=== PATIENT | male | born 1960 | race Caucasian/White ===

== ENCOUNTER 2020-05-10 06:17 | Inpatient (IN) | payer MEDICAID ==
[2020-05-03 11:45] LABS: CLARITY,URINE CLEAR (Clear); COLOR,URINE YELLOW (Yellow); GLUCOSE, URINE NEGATIVE (Neg); KETONES,URINE NEGATIVE (Neg); LEUKOCYTE ESTERASE ,URINE NEGATIVE (Neg); NITRITES, URINE NEGATIVE (Neg); OCCULT BLOOD,URINE NEGATIVE (Neg); PROTEIN,URINE NEGATIVE (Neg); UROBILINOGEN,URINE 0.2 E.U/dL (0.2-1.0)
[2020-05-03 11:48] LABS: BASOPHILS % (AUTO) 0.6 % (0-1); EOSINOPHILS # (AUTO) 0.3 X10'3 (0-0.9); EOSINOPHILS % (AUTO) 3.9 % (0-6); LYMPHOCYTES # (AUTO) 2.5 X10'3 (1.1-4.8); LYMPHOCYTES % (AUTO) 30.4 % (21-51); MEAN CORPUSCULAR HEMOGLOBIN 31.6 PG (27.0-31.0); MEAN CORPUSCULAR VOLUME 92.8 FL (78-98); MEAN PLATELET VOLUME 7.2 FL (7.4-10.4); MONOCYTES # (AUTO) 0.7 X10'3 (0-0.9); NEUTROPHILS # (AUTO) 4.6 X10'3 (1.8-7.7); NEUTROPHILS % (AUTO) 57.1 % (42-75); PRE OP HEMATOCRIT 41.7 % (42.0-52.0); PRE OP HEMOGLOBIN 14.2 g/dL (14.0-17.9); PRE OP PLATELET COUNT 268 X10'3 (140-440); RED CELL DISTRIBUTION WIDTH 13.2 % (11.5-14.5)
[2020-05-03 11:49] LABS: UA COLLECTION TYPE CLN CATCH MIDSTREAM
[2020-05-03 11:58] LABS: PRE OP INR 0.9 INR; PRE OP PROTIME 9.8 SECONDS (9.0-12.0)
[2020-05-03 12:01] LABS: ALBUMIN 3.7 G/DL (3.4-5.0); ALBUMIN/GLOBULIN RATIO 0.9 (1.1-1.5); ALKALINE PHOSPHATASE 118 IU/L (46-116); BLOOD UREA NITROGEN 16 MG/DL (7-18); CALCIUM 8.5 MG/DL (8.5-10.1); CHLORIDE 107 MMOL/L (99-107); CREATININE 0.94 MG/DL (0.60-1.10); PRE OP ALT 32 U/L (30-65); PRE OP ANION GAP 8 (8-16); PRE OP AST 21 U/L (10-37); PRE OP BILIRUB, TOTAL 0.3 MG/DL (0.0-1.0); PRE OP GLUCOSE 94 MG/DL (70-104); PRE OP POTASSIUM 4.5 MMOL/L (3.4-5.1); PRE OP SODIUM 140 MMOL/L (135-145); TOTAL CARBON DIOXIDE 25.3 MMOL/L (24-32); TOTAL PROTEIN 7.6 G/DL (6.4-8.2); eGFR 82 ML/MIN
[~2020-05-10] VITALS: Ht 177.8 cm; Wt 123.7 kg
[2020-05-10] VITALS (22 sets, daily range): BP systolic 109–137; BP diastolic 65–83
[~2020-05-10 06:17] MED LIST: APIX5TAB3 PO; ceFAZolin 2gm in dextrose, iso 50 ML IV ONE; famotidine 20mg tablet PO ONE; ringers solution, lacted 1,000 ML IV SCH; vancomycin 1,500 MG in NS 300ml IV soln IV ONE
[2020-05-10] MEDS ORDERED: BUPIVAcaine/PF 2.5 mg/ml (0.25%) 30ml vial ONE (10:02)
[2020-05-10] MEDS ORDERED: bacitracin 15gm ointment TP ONE (10:02)
[2020-05-10] MEDS ORDERED: sevoflurane 250ml liquid IH ONE (10:22)
[2020-05-10] MEDS ORDERED: ROPIVAcaine 0.2%/PF PUMP/bolus 550 ML ADDCANAL SCH (10:27)
[2020-05-10] MEDS ORDERED: ringers solution, lacted 1,000 ML IV SCH (10:27)
[2020-05-10] MEDS ORDERED: meperidine/PF 25mg/ml syringe IV PRN ×3 (10:30)
[2020-05-10] MEDS ORDERED: acetaminophen 1,000mg/100ml IV 100 ML IV PRN (10:30)
[2020-05-10] MEDS ORDERED: morphine 4 MG/ML inj SYRINge IV PRN (10:30)
[2020-05-10] MEDS ORDERED: ondansetron/PF 4mg/2ml inj IV PRN (10:30)
[2020-05-10] MEDS ORDERED: ROPIVAcaine 0.2% (10 MG/5 ML) BOLUS INJECTION ADDCANAL PRN (10:30)
[2020-05-10] MEDS ORDERED: morphine 2 MG/ML inj. syringe IV PRN (10:30)
[2020-05-10] MEDS ORDERED: proCHLORperazine 10 MG/2 ml inj IV PRN (10:30)
[2020-05-10] MEDS ORDERED: fentaNYL/PF 50MCG/1 ML 2ML syringe ONE (11:03)
[2020-05-10] MEDS ORDERED: LIDOcaine 2% (20mg/ml) 5ml vial ONE (11:04)
[2020-05-10] MEDS ORDERED: propofol inj 20 ML IV ONE (11:04)
[2020-05-10] MEDS ORDERED: midazolam 2 mg/2 ml injection ONE (11:04)
[2020-05-10] MEDS ORDERED: ROPIVAcaine 0.5% (5mg/ml) 30ml vial ONE ×2 (11:04)
[2020-05-10] MEDS ORDERED: dexamethasone sod phosphate 4mg/ml inj. ONE (11:44)
[2020-05-10] MEDS ORDERED: ondansetron/PF 4mg/2ml inj ONE (11:44)
[2020-05-10] MEDS ORDERED: morphine 10mg/ml inj. ONE (12:59)
[2020-05-10] MEDS ORDERED: diphenhydrAMINE 25mg capsule PO PRN (14:10)
[2020-05-10] MEDS ORDERED: HYDROcodone/acetaminophen 10/325mg tab PO PRN ×2 (14:10)
--- NOTE | 2020-05-10 14:38 | NUR ---
Patient in room PAS IN 900. I have received report from Zak and had the opportunity to ask questions and assume patient care.
--- NOTE | 2020-05-10 14:46 | NUR ---
Report called to receiving nurse. Transferred via ORTHO BED WITH ONE BAG OF Belongings.UPPER DENTURE IN MOUTH. Special Issues communicated to receiving nurse NENA. SET PATIENT UP WITH VS AND BED IS IN LOW POSITION WITH 2 RAILS UP. SCDS ON RIGHT LE, FOOT OF BED GATCHED, DENIES PAIN AT THIS TIME. RN AWARE PATIENT HAS ARRIVED. VSS. ALL LINES SET UP. Addendum: 05/10/20 at 1507 by Zak Kilpatrick RN, RN Amended: Links added.
[2020-05-10] MEDS: ceFAZolin 2gm in dextrose, iso 50 ML IV SCH ×2 (15:40→23:52)
--- NOTE | 2020-05-10 18:30 | NUR ---
Problems reprioritized. Patient report given, questions answered & plan of care reviewed with Rachel.
--- NOTE | 2020-05-10 18:42 | NUR ---
Patient in room ORTHO 4013. I have received report from Reanna CATES and had the opportunity to ask questions and assume patient care.
[2020-05-10] MEDS: potassium cl 20mEq in 1/2 NS 1,000 ML IV SCH (19:15)
[2020-05-10] MEDS: docusate sod 100mg capsule PO SCH (19:31)
[2020-05-10] MEDS: apixaban 5mg tablet PO SCH (19:31)
[2020-05-11 02:35] VITALS: BP 104/62
[2020-05-11] MEDS: potassium cl 20mEq in 1/2 NS 1,000 ML IV SCH (03:15)
[2020-05-11 06:00] VITALS: BP 106/67
--- NOTE | 2020-05-11 06:34 | NUR ---
Problems reprioritized. Patient report given, questions answered & plan of care reviewed with Jess CATES.
--- NOTE | 2020-05-11 06:57 | NUR ---
Patient in room ORTHO 4013. I have received report from Rachel CATES and had the opportunity to ask questions and assume patient care.
[2020-05-11] MEDS: docusate sod 100mg capsule PO SCH (08:20)
[2020-05-11] MEDS: apixaban 5mg tablet PO SCH (08:20)
[2020-05-11 10:00] VITALS: BP 109/67
--- NOTE | 2020-05-11 14:34 | NUR ---
Pt DC to home. Pt is A&O X4, and in no apparent distress. Pt ahs a O Q nerve numbing bulb on left tightPt states he has no pain. Pt verbalizes understanding of all DC orders and is able to teach back process of how to access his surgical incision/cast. Pt able to asses for perfusion and pulses, S & S of compartment syndrome. Pt will continue with [facility] and states he will follow up with Dr Barnes and PCP. Pt states he has a scooter, crutches and walker if needed. will be there to assist him. Pt dressed, belongings were packed and carried out to with him. Pt wheeled to the front where picked him up.
== END 2020-05-11 13:56 | disposition home or self-care (01) | DRG 313 ==
LOC: PAS IN 06:17 → UNDOADMIN 06:17 → EDSTATUS 07:30 → PAS IN 14:08 → ORTHO 4S 14:45 → PAS IN 14:45
PROVIDERS: ADMIT Podiatrist Foot & Ankle Surgery; ATTEND Podiatrist Foot & Ankle Surgery
PROC: 3E0T3BZ Introduction of Anesthetic Agent into Peripheral Nerves and Plexi, Percutaneous Approach (ICD-10-PCS; 2020-05-10)
PROC: 0SRG0J9 Replacement of Left Ankle Joint with Synthetic Substitute, Cemented, Open Approach (ICD-10-PCS; principal; 2020-05-10 10:22)
DX: M19.072 Primary osteoarthritis, left ankle and foot (principal); G89.29 Other chronic pain; G47.33 Obstructive sleep apnea (adult) (pediatric); E66.9 Obesity, unspecified; Z86.711 Personal history of pulmonary embolism; Z68.39 Body mass index [BMI] 39.0-39.9, adult
CPT/HCPCS: 36415; 71046; 73610; 76000; 80053; 81003; 82948; 85025; 85610; 85730; 87081; 97116; 97161; 97530; A4618; A6223; A6449; A7000; C1776; G0378; J1100; J2001; J2250; J2270; J2405; J2704; J2795; J3010; J3370; J3480; J3490; J7040; J7120